=== PATIENT | female | born 1965 | race Caucasian/White ===

== ENCOUNTER 2023-02-02 09:39 | Outpatient (CLI) | payer OTHER, SELFPAY | END 2023-02-02 09:40 | disposition home or self-care (01) | LOC: NFLDREF 02-03 00:48 | PROVIDERS: PCP Family Medicine; Referring Provider Family Medicine; Visit Provider Family Medicine | DX: R63.5 Abnormal weight gain (principal) | CPT/HCPCS: 80048; 80061; 84443 ==